=== PATIENT | female | born 1965 | race Caucasian/White ===

== ENCOUNTER → 2019-12-21 15:45 | Outpatient (CLI) | payer OTHER, SELFPAY ==
--- NOTE | 2019-12-21 15:49 | DI.MG.S_ITS ---
BILATERAL DIGITAL SCREENING MAMMOGRAM 3D/2D WITH CAD: 12/21/2019 CLINICAL: Routine screening. Comparison is made to exams dated: 07/01/2016 mammogram, 09/07/2017 mammogram, and 10/12/2018 mammogram - outside location. The tissue of both breasts is heterogeneously dense. This may lower the sensitivity of mammography. Current study was also evaluated with a Computer Aided Detection (CAD) system. There are benign calcifications in both breasts that are not significantly changed. There is a 1.3 cm oval equal density focal asymmetry in the left breast at 6 o'clock middle depth. This is more prominent and increased in size. No other significant masses, calcifications, or other findings are seen in either breast. IMPRESSION: INCOMPLETE: NEEDS ADDITIONAL IMAGING EVALUATION The 1.3 cm oval equal density focal asymmetry in the left breast resembles a cyst and is indeterminate. Additional views with possible ultrasound are recommended. This exam was interpreted at Station ID: [id number]. NOTE: For mammograms, a report in lay terms will be sent to the patient. Approximately 15% of breast malignancies will not be visualized mammographically. In the management of a palpable breast mass, a negative mammogram must not discourage biopsy of a clinically suspicious lesion. Electronically Signed By: Vidal Lemon M.D. aty/:12/25/2019 13:21:09 letter sent: Additional Imaging Needed ACR BI-RADS Category 0: Incomplete 3340F
== END ==
PROVIDERS: PCP Nurse Practitioner; Referring Provider Nurse Practitioner; Visit Provider Nurse Practitioner
DX: Z12.31 Encounter for screening mammogram for malignant neoplasm of breast (principal)
CPT/HCPCS: 77063; 77067

== ENCOUNTER → 2019-12-25 17:12 | Outpatient (CLI) | payer OTHER, SELFPAY ==
[2019-12-25 17:42] LABS: Bacteria Urine None Seen; RBC Urine None Seen (0-5/HPF)
[2019-12-25 18:00] LABS: Appearance Urine UA CLEAR; Bilirubin Urine UA NEGATIVE (NEGATIVE); Color Urine UA YELLOW; Glucose Urine UA NEGATIVE (Negative); Ketones Urine UA NEGATIVE (NEGATIVE); Leukocyte Esterase Urine UA TRACE (NEGATIVE); Nitrite Urine UA NEGATIVE (Negative); Occult Blood Urine UA NEGATIVE (Negative); Protein Urine UA NEGATIVE (Negative); Urobilinogen Urine UA 0.2 E.U./dL (0.2)
[2019-12-25 18:29] LABS: pH Urine UA 6.5 (4.5-8.0)
[2019-12-25 18:36] LABS: Amorphous Sediment Urine 1+; Renal Epithelial Cells Urine 0-1/HPF (0-1/HPF); Squamous Epithelial Cell Urine 1-5 /HPF (0-5/HPF); WBC Urine 1-5/HPF (0-5/HPF)
[2019-12-25 18:37] LABS: Culture Indicated Urine Specimen Cultured; Mucus Urine 1+ (Negative)
== END ==
PROVIDERS: PCP Nurse Practitioner; Referring Provider Nurse Practitioner; Visit Provider Nurse Practitioner
DX: N39.0 Urinary tract infection, site not specified (principal)
CPT/HCPCS: 81001; 87086

== ENCOUNTER → 2020-09-18 08:43 | Outpatient (CLI) | payer OTHER, SELFPAY ==
[2020-09-18 15:01] LABS: COVID19 -Nasal RAPID Negative (Negative)
== END ==
PROVIDERS: PCP Nurse Practitioner; Visit Provider Surgery
DX: Z20.822 Contact with and (suspected) exposure to COVID-19 (principal)
CPT/HCPCS: 87635; C9803

== ENCOUNTER 2020-09-19 13:15 | Day surgery (SDC) | payer OTHER, SELFPAY ==
[2020-09-19 13:46] VITALS: BP 115/80; PULSE 65; RESP 16; TEMP 36.7; O2SAT 100; BMI 21.4
[2020-09-19] MEDS: LACTATED RINGERS 1,000 ML 200 ML IV (14:04)
--- NOTE | 2020-09-19 14:51 | P.HP_ITS ---
History of Present Illness History of Present Illness Chief complaint: [facility] [place] Narrative: The patient presents for colorectal sreening. Colonoscopy 6 years ago demonstrated benign polyps.. No personal or family history of colon cancer. On further history denies any recent gastrointestinal symptoms. No nausea, vomi ting, abdominal pain, loss of appetite, unexplained weight loss, change in bowel habits, diarrhea, constipation, melena, hematochezia, or bright red blood per rectum. Patient History Medical History Anemia (~2014) Breast cancer screening Cervical spine disease (~1984) Chicken pox Colon polyps (~2014) Foot pain (~2019) Frequent UTI (~2019) Lumbar stenosis Pituitary adenoma (~1992) Scoliosis Skin lesion Vision disorder Surgical History Anesthesia History of appendectomy (~1995) History of fusion of cervical spine (~2001) Family & Social History Family History Father Lung cancer Hyperlipidemia Mother CML (chronic myelocytic leukemia) Cancer Diabetes mellitus Hyperlipidemia Vascular problem Brother HIV (human immunodeficiency virus infection) Mental health problem Sister Diabetes mellitus Grandfather Stroke Grandmother Mental health problem Grandmother Stroke Social History: household members spouse Tobacco & Substance use: Smoking Status Never smoker alcohol intake frequency a few times a week Substance Use Type does not use Meds Home Medications and Allergies Home Medications Medication Instructions Recorded Confirmed Type calcium carbonate 334 mg-magnesium 1 tab PO DAILY 10/13/19 09/19/20 History oxide 134 mg-zinc oxide 5 mg tablet cholecalciferol (vitamin D3) 50 100 mcg PO DAILY #1 tab 10/13/19 09/19/20 Rx mcg (2,000 unit) tablet (Vitamin D3) estradiol 0.5 mg tablet 0.5 mg PO DAILY 10/13/19 12/11/19 History levothyroxine 50 mcg tablet 50 mcg PO DAILY 10/13/19 12/11/19 History liothyronine 5 mcg tablet 10 mcg PO DAILY 10/13/19 09/19/20 History mupirocin 2 % topical ointment 1 applic TOP BID #30 gram 12/22/19 Rx DHEA 5mg 25 mg PO QAM 09/19/20 History soy isoflavone-black cohosh 1 cap PO DAILY 09/19/20 09/19/20 History root-magnolia bark 155 mg capsule (Estroven) Allergies Allergy/AdvReac Type Severity Reaction Status Date / Time codeine AdvReac Intermediate hyper Verified 09/19/20 13:40 oxycodone AdvReac Intermediate Verified 09/19/20 13:39 prochlorperazine AdvReac Intermediate Verified 09/19/20 13:39 [From Compazine] Exam Vital Signs (past 8 hours): - 09/19/20 13:46 Temperature 98.1 F Pulse Rate 65 Respiratory Rate 16 Blood Pressure 115/80 Pulse Oximetry 100 Oxygen Delivery Method Room Air Narrative Exam Narrative: GENERAL-well developed adult woman, no acute distress HEENT-no scleral icterus, hearing intact NECK-no JVD, trachea midline CVS- regular rate, no peripheral edema RESP-unlabored respiratory effort, no audible wheezing GI-soft, nontender nondistended MSK-no cyanosis or clubbing, extremities without deformity SKIN-warm, dry NEURO-alert and oriented, no focal deficits PYSCH-Appropriate mood and affect Assessment & Plan Assessment & Plan narrative: The patient requires colorectal screening and colonoscopy is recommended. Technical details were discussed. Risks, benefits, alternatives explained. Risks including but not limited to myocardial infarction, aspiration, bleeding, pain, missed lesion, incomplete examination, need for further radiographic studies, colonic perforation, and need for major abdominal surgery were discussed. All questions were answered to their satisfaction, and they are in agreement with this plan.
--- NOTE | 2020-09-19 15:23 | PM.OP.ENDO ---
Operative Date/Time/Diagnoses Date of procedure: 09/19/20 Time of procedure: 15:24 Pre-op diagnosis: Personal history of colonic polyps Post-op diagnosis: same Procedure & Clinicians Study performed: Colonoscopy Same procedure as scheduled: Yes Indications: Personal history of colonic polyps Surgeon: Hector Bob Procedure Notes Procedure in detail: Medications: Conscious sedation using 5 mg IV midazolam and 150 mcg IV of fentanyl The history and physical was performed/updated and the patient is ASA class is 2. The procedure was discussed in detail with the patient. Potential risks complications including infection, bleeding, missed diagnosis, perforation, need for surgery, and were explained. Their questions were answered and informed consent was obtained. Patient was brought to the procedure room and placed standard monitoring equipment. The patient's vital signs were monitored continuously throughout the entire procedure. Prior to starting time-out was performed. The patient was placed in the left lateral recumbent position. Procedural sedation was administered. Examination began with a thorough inspection of the perianal area there was no evidence of fissures, fistulae, external hemorrhoids or cutaneous malignancy. The colonoscopy scope was then placed into the anal canal and was advanced to the cecum, which was identified by the ileocecal valve, the appendiceal orifice and the confluence of the taenia. The scope was then slowly withdrawn examining colon thoroughly in all directions, irrigating it of any residual stool. 1. No masses polyps 2. Grade 2 internal hemorrhoids The patient tolerated the procedure well. They will be discharged once criteria are met. The prep was of good/excellent quality. The withdrawl time was 7 minutes. The sedation time was 19 minutes. Specimen(s): none sent Complications: none Impression: Normal colonoscopy Post-procedure Recommendations: Colonscopy in 10 years Disposition: same day surgery
[2020-09-19] MEDS: fentaNYL 250 MCG/5 ML INJ IV (15:26)
[2020-09-19] MEDS: MIDAZOLAM 5 MG/5 ML VIAL IV (15:26)
[2020-09-19 15:29] VITALS: BP 122/76; PULSE 71; RESP 16; TEMP 37.2; O2SAT 98
[2020-09-19 15:33] VITALS: BP 109/75; PULSE 69; RESP 16; O2SAT 97
[2020-09-19 15:39] VITALS: BP 129/76; PULSE 81; RESP 14; O2SAT 99
[2020-09-19 15:44] VITALS: BP 127/84; PULSE 83; RESP 14; TEMP 37.2; O2SAT 99
--- NOTE | 2020-09-19 15:50 | SUR.PHASEII ---
Pt given discharge instructions. pt denies any complaints Pt states she understands discharge instructions.
== END 2020-09-19 15:59 | disposition home or self-care (01) ==
PROVIDERS: PCP Nurse Practitioner; Referring Provider Surgery; Visit Provider Surgery
PROC: 0DJD8ZZ Inspection of Lower Intestinal Tract, Via Natural or Artificial Opening Endoscopic (ICD-10-PCS; CPT 45378; principal; 2020-09-19 14:30)
DX: Z12.11 Encounter for screening for malignant neoplasm of colon (principal); Z86.010 Personal history of colon polyps; K64.1 Second degree hemorrhoids
CPT/HCPCS: 45378; 99152; J2250; J3010

== ENCOUNTER → 2022-09-11 12:01 | Outpatient (CLI) | payer OTHER, SELFPAY ==
--- NOTE | 2022-09-11 12:02 | DI.RAD.S_ITS ---
PROCEDURE: XR KNEE LT 3V INDICATIONS: Left knee pain after fall on knee TECHNIQUE: 3 views of the knee were acquired. COMPARISON: None. FINDINGS: Bones: No fractures or dislocations. No suspicious bony lesions. Soft tissues: No joint effusion. No suspicious soft tissue calcifications. IMPRESSION: No trauma found. Dictated by: Kenney Hernandez M.D. on 09/11/2022 at 13:28 Approved by: Kenney Hernandez M.D. on 09/11/2022 at 13:28
--- NOTE | 2022-09-11 12:02 | DI.RAD.S_ITS ---
PROCEDURE: XR ANKLE RT MIN 3V INDICATIONS: right ankle pain after fall TECHNIQUE: 3 views of the ankle were acquired. COMPARISON: None. FINDINGS: Bones: No dislocations. There is an inferior tip lateral malleolus nondisplaced fracture, with associated adjacent soft tissue swelling and also on the lateral view there appears to be an ankle joint effusion at the tibiotalar joint. Ankle mortise is normally aligned. No suspicious bony lesions. Soft tissues: No tibiotalar joint effusion. Achilles tendon appears normal. IMPRESSION: Far inferior tip lateral malleolar acute fracture, associated soft tissue swelling is immediately adjacent and there is a anterior tibiotalar joint effusion associated. Dictated by: Kenney Hernandez M.D. on 09/11/2022 at 13:26 Approved by: Kenney Hernandez M.D. on 09/11/2022 at 13:28
== END ==
PROVIDERS: PCP Nurse Practitioner; Referring Provider Physician Assistant; Visit Provider Physician Assistant
DX: S82.61XA Displaced fracture of lateral malleolus of right fibula, initial encounter for closed fracture (principal); M25.571 Pain in right ankle and joints of right foot; M25.562 Pain in left knee
CPT/HCPCS: 73562; 73610